=== PATIENT | male | born 1965 | race Caucasian/White ===

== ENCOUNTER 2016-10-27 13:16 | Inpatient (IN) ==
[2016-10-27 14:40] LABS: BASO% 0.4 % (0.0-0.8); EOS# 0.52 X1000 (0.0-0.7); EOS% 6.4 % (0.0-10.0); HEMATOCRIT 36.3 % (42.0-52.0); HEMOGLOBIN 12.4 g/dL (14.0-18.0); LYMPH# 2.33 X1000 (1.2-3.4); LYMPH% 28.9 % (20.5-51.1); MANUAL DIFF NEEDED? YES; MCH 39.5 PG (27-31); MCHC 34.2 g/dL (33-37); MCV 115.6 FL (81-99); MONO# 0.93 X1000 (0.11-0.59); MONO% 11.5 % (1.7-9.3); MPV 9.7 FL (7.4-10.4); NEUT% 52.8 % (42.2-75.2); PLT 256 X1000 (130-400); RBC 3.14 XMIL (4.7-6.1)
[2016-10-27 14:41] LABS: AGAP 12; ALBUMIN 4.1 g/dL (3.5-5.0); ALKALINE PHOSPHATASE 78 U/L (32-122); BUN 8 mg/dL (8-22); CALCIUM 8.9 mg/dL (8.8-10.2); CHLORIDE 100 mmol/L (98-107); COSMO 273; GOT 30 U/L (10-34); GPT 19 U/L (10-44); POTASSIUM 3.7 mmol/L (3.5-5.1); SODIUM 137 mmol/L (136-145); TCO2 25 mmol/L (25-35); TOTAL BILIRUBIN 0.69 mg/dL (0.20-1.00); TOTAL PROTEIN 7.1 g/dL (6.3-8.3)
[2016-10-27 15:04] LABS: BANDS 6 % (0-1); EOS 8 % (1-10); LYMPHS 30 % (21-51); MONO 2 % (1-9)
[2016-10-27 15:05] LABS: POLYCHROM OCCASIONAL
[2016-10-27 15:08] LABS: PROTIME 9.5 Seconds (9.2-11.7)
[2016-10-27 15:09] LABS: INR 0.93
[2016-10-27] MEDS ORDERED: PREPARATION H SUPPOSITORY PR ONE (17:00)
--- NOTE | 2016-10-27 17:16 | PROVIDER DOCUMENTATION ---
HPI-Abdominal Pain/GI Problem - General Chief Complaint: Rectal Bleeding Stated Complaint: GENERAL Time Seen by Provider: 10/27/16 16:26 Allergies/Adverse Reactions: Patient Allergies Allergy/AdvReac Type Severity Reaction Status Date / Time No Known Allergies Allergy Verified 10/27/16 17:09 Home Medications: Home Medication List Medication Instructions Recorded Confirmed Last Taken Type No Home Medications 10/27/16 10/27/16 Unknown History - History of Present Illness-ABD Nature of Presenting Problems: Pt comes in with complaint of blood in his stool since sunday that has gotten worse and is now leaking out and getting on his boxers. He denies any PMH other than having a polyp removed. He states he feels like he has hemorrhoids and they could be the source of his bleeding Review of Systems - Adult - REVIEW OF SYSTEMS - ADULT Constitutional: reports: no symptoms reported. denies: chills, fever, fatique, night sweats, weight gain, weight loss Eyes: reports: no symptoms reported. denies: discharge, decreased vision, blurred vision, eye pain, redness Ears, Nose, Mouth & Throat: reports: no symptoms reported. denies: ear pain, hearing loss, sinus problem, loose teeth, mouth swelling, hoarseness, throat pain, throat swelling Cardiovascular: reports: no symptoms reported. denies: chest pain, edema, heart murmur, orthopnea, palpitations, poor circulation Respiratory: reports: no symptoms reported. denies: see HPI, chronic cough, dyspnea on exertion, excessive sputum production, hemoptysis, pleurisy, wheezing Gastrointestinal: reports: see HPI, rectal bleeding. denies: abdominal pain, hematemesis, constipation, diarrhea, difficulty swallowing, nausea, poor appetite, vomiting Genitourinary: reports: no symptoms reported. denies: dysuria, discharge, frequency, flank pain, hematuria, hesitency, incontinence, urinary retention, urgency Musculoskeletal: reports: no symptoms reported. denies: frequent leg cramps, joint pain, joint swelling, muscle aches, muscle weakness, neck pain Integumentary: reports: no symptoms reported. denies: hives, hair loss, mole changes, nail changes, rash, skin thickening Neurological: reports: no symptoms reported. denies: ataxia, dizziness/vertigo , headache/migraines, loss of balance, paresthesia, seizure, slurred speech, syncope, tremors Psychiatric: reports: no symptoms reported. denies: anxiety, emotional problems , panic attacks Endocrine: reports: no symptoms reported. denies: see HPI, change in skin pigment, excessive sweating, goiter, cold intolerance, heat intolerance, increased hunger, increased thirst, polyuria Hematologic/Lymphatic: reports: no symptoms reported. denies: blood clots, easy bruising, low blood count, lymphedema, prolonged bleeding, swollen lymph nodes, transfusions Allergic/Immunologic: reports: no symptoms reported. denies: allergic reactions , eczema, frequent infections, hay fever, positive PPD, urticaria All Other Systems: Reviewed and Negative Past History - Adult - PAST MEDICAL HISTORY-ADULT Review of Records: reports: Old Records Reviewed, Nursing Assessment Review, Medications Reviewed, Social history reviewed & non-contributory. Major Childhood Illnesses: reports: denies history Cardiovascular: reports: denies history Respiratory: reports: denies history Gastrointestinal: reports: polyps Obstetrical/Gynecological: reports: denies history Genitourinary: reports: denies history Musculoskeletal: reports: denies history Neurological: reports: denies history Endocrine/Immune: reports: denies history Other Conditions: reports: denies history - PRIOR SURGERIES/PROCEDURES Surgical/Procedure History: reports: colonoscopy - PRIOR HOSPITALIZATIONS Prior Hospitalizations: reports: none - IMMUNIZATION STATUS Childhood Immunizations: See Nurse Assessment Flu Vaccine: See Nurse Assessment - FAMILY HISTORY Family History: reviewed, not pertinent - SOCIAL HISTORY Smoking: cigarettes Provider spent 3-5 mins advising pt. on dangers of tobacco.: Discussed manners to quit use, and f/u contacts for add'l counseling. Substance Use: none/never Alcohol Use Frequency: never Living Situation: family Physical Exam-General - PHYSICAL EXAM-ADULT Initial Vital Signs Reviewed: Yes - CONSTITUTIONAL General Appearance: appears well, alert, no apparent distress, thin - EYES Eyes: PERRL/EOMI, pink conjunctivae - HEAD, EARS, NOSE, MOUTH & THROAT HENMT: normocephalic/atraumatic, moist mucous membranes, normal ENT inspection - NECK Neck: non-tender, full range of motion - RESPIRATORY Respiratory: chest non-tender, lungs clear, normal breath sounds, no pleuratic chest pain, no respiratory distress - CARDIOVASCULAR Cardiovascular: normal peripheral pulses, regular rate, rhythm, no edema - GASTROINTESTINAL (ABDOMEN) Abdominal Exam: normal bowel sounds, non tender, soft, no organomegaly, no pulsatile mass - GENITOURINARY Male Genitalia: deferred Rectal Exam: hemorrhoids (internal) Hemoccult Exam: heme positive stool - MUSCULOSKELETAL Back Exam: normal inspection, no CVA tenderness, no vertebral tenderness Extremity: normal range of motion, non-tender, normal gait, normal inspection - SKIN Integumentary: normal color, normal turgor - NEUROLOGIC 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, grossly normal, no motor/sensory deficits - PSYCHIATRIC Psych/Mental Status: normal mood/affect, normal thought content, normal thought process, oriented x 3 Progress - PLAN OF CARE/RESULTS Progress/Plan/Lab Results: Laboratory Tests 10/27/16 10/27/16 10/27/16 14:12 14:12 14:12 WBC 8.07 RBC 3.14 L Hgb 12.4 L Hct 36.3 L MCV 115.6 H MCH 39.5 H MCHC 34.2 RDW Std Deviation 13.3 Plt Count 256 MPV 9.7 Neut % (Auto) 52.8 Lymph % (Auto) 28.9 [place] % (Auto) 11.5 H Eos % (Auto) 6.4 Baso % (Auto) 0.4 Neut # (Auto) 4.26 Lymph # (Auto) 2.33 [place] # (Auto) 0.93 H Eos # (Auto) 0.52 Baso # (Auto) 0.03 Segmented Neutrophils 48 Band Neutrophils 6 H Lymphocytes 30 Monocytes 2 Eosinophils 8 Atypical Lymphocytes 6.0 Polychromasia OCCASIONAL Basophilic Stippling OCCASIONAL Anisocytosis 2+ Macrocytosis 2+ PT 9.5 INR 0.93 PTT (Actin FS) 29.0 Sodium 137 Potassium 3.7 Chloride 100 Carbon Dioxide 25 Anion Gap 12 BUN 8 Creatinine 0.8 Estimated GFR/1.73 m2 > 60 BUN/Creatinine Ratio 10 Glucose 111 H Calculated Osmolality 273 Calcium 8.9 Total Bilirubin 0.69 AST 30 ALT 19 Alkaline Phosphatase 78 Total Protein 7.1 Albumin 4.1 Globulin 3.0 Albumin/Globulin Ratio 1.4 Orders Category Date Time Status CBC WITH ELECTRONIC DIFF [HEME] Stat Lab 10/27/16 14:12 Completed COMPREHENSIVE METABOLIC PANEL [CHEM] Stat Lab 10/27/16 14:12 Completed OCCULT BLOOD DIAGNOSTIC [STOOL] Stat Lab 10/27/16 17:03 Ordered PROTIME WITH INR [COAG] Stat Lab 10/27/16 14:12 Completed PTT [COAG] Stat Lab 10/27/16 14:12 Completed Phenyleph/Shark Liver/Ccb Supp [Preparation H Med 10/27/16 17:00 Once Suppository] 1 each WA NOW ONE Vital Signs - 24 hr 10/27/16 14:02 Temperature 98.0 F Pulse Rate 82 Respiratory 18 Rate Blood Pressure 121/85 O2 Sat by Pulse 100 Oximetry - CONSULTS/PCP/HOSPITALIST Notification #1 *Consult/PCP/Hospitalist*: rossana Time Discussed: 17:49 (pt has not seen dr mcneil in over a year not an active patient admit to hospitalist ) Consult Disposition: other #2 Consult: maxwell tucker hospitalist Time Discussed: 17:49 Consult Disposition: Will see in ED, Admit Departure - Departure Time of Disposition Order: 17:31 DIAGNOSIS: Lower GI bleed Disposition: ADMITTED INPATIENT 09 Certified Medical Emergency: Emergent Condition: Good Additional Instructions: ED Follow Up Instructions: You have been treated by a care provider in the Emergency Department. These instructions are being provided to you so you can have an understanding of how to care for yourself upon discharge. Upon discharge from the Emergency Department, you are responsible for making arrangements for follow-up care by a physician of your choice. Take all prescribed medications as directed. Return to the Emergency Department immediately for any new or worsening symptoms. You may call the Physician Referral phone number at [phone] to obtain a list of Physicians who are taking new patients. Attestation - Physician/ CADE Attestation Patient care was provided by Advanced Practice Provider:: Yes Advanced Practice Provider:: Arnulfo Michaels Advanced Practice Provider documentation review:: The Mid-level provider documentation, treatment plan and medical decision making was reviewed by the physician who agrees with all treatment and medical decision making by the P.
[2016-10-27] MEDS ORDERED: NS 1,000 ML IV ONE (17:37)
[2016-10-27] MEDS ORDERED: NICODERM PATCH ONE (18:10)
[2016-10-27] MEDS ORDERED: NICODERM PATCH TD ONE (18:20)
[2016-10-27] MEDS ORDERED: PROTONIX IV SCH (21:29)
[2016-10-27] MEDS ORDERED: TYLENOL PO PRN (21:29)
[2016-10-27] MEDS ORDERED: ZOFRAN IV PRN (21:29)
[2016-10-27] MEDS ORDERED: SODIUM CHLORIDE 0.9% INJ SCH (21:29)
[2016-10-27] MEDS: NS 1,000 ML IV SCH (22:31)
[2016-10-27] MEDS: NICODERM PATCH TD SCH (22:31)
[2016-10-28 07:37] LABS: BASO% 0.3 % (0.0-0.8); EOS# 0.66 X1000 (0.0-0.7); EOS% 8.5 % (0.0-10.0); HEMATOCRIT 32.7 % (42.0-52.0); IMM GRAN# 0.07 X1000 (0.0-0.04); IMM GRAN% 0.9 % (0.0-0.5); LYMPH# 2.42 X1000 (1.2-3.4); LYMPH% 31.2 % (20.5-51.1); MANUAL DIFF NEEDED? YES; MCH 38.6 PG (27-31); MCHC 33.6 g/dL (33-37); MCV 114.7 FL (81-99); MONO# 0.92 X1000 (0.11-0.59); MONO% 11.9 % (1.7-9.3); MPV 9.9 FL (7.4-10.4); NEUT% 47.2 % (42.2-75.2); PLT 236 X1000 (130-400); RBC 2.85 XMIL (4.7-6.1)
[2016-10-28 07:38] LABS: AGAP 11; BUN 6 mg/dL (8-22); CALCIUM 8.7 mg/dL (8.8-10.2); CHLORIDE 105 mmol/L (98-107); COSMO 273; POTASSIUM 3.7 mmol/L (3.5-5.1); SODIUM 138 mmol/L (136-145); TCO2 22 mmol/L (25-35)
[2016-10-28 07:55] LABS: BANDS 4 % (0-1); EOS 6 % (1-10); LYMPHS 28 % (21-51); MONO 8 % (1-9)
--- NOTE | 2016-10-28 08:08 | HISTORY AND PHYSICAL ---
PRIMARY CARE PROVIDER: The patient's previous primary care provider was Dr. Mir Dial, though the patient has not seen him in, from what I understand, in several years. Thus at this time he will be admitted to the hospitalist service for admission and continued care. CHIEF COMPLAINT: Rectal bleeding. HISTORY OF PRESENT ILLNESS: The patient is a 51-year-old male who presented to the emergency room [facility] with the complaints of rectal bleeding that started on Sunday, approximately six days ago. The patient stated that previously he was just noticing blood when he would wipe after having a bowel movement, though now he states that this has gotten worse and he is continually having dripping-type rectal bleeding that is getting on his boxers, as well as his clothes. The patient denies any loose stools. He reports having formed regular stools and normally has two bowel movements a day. The patient states that he has had previous problems with hemorrhoids in the past. He denies any abdominal pain. He denies any nausea or vomiting. The patient does have a previous history of having a polyp removed though no other known past medical history except for this. The patient also reports that he does use approximately 4 BC Powders a day and drinks anywhere from 30 to 60 beers a week. The patient reports the rectal bleeding he is having is bright red in color. Upon evaluation in the emergency room the patient was noted to have a Hemoccult-positive stool that NARGIS Ayala in the ER did from a rectal exam on the patient, for which he did note internal hemorrhoids. The patient is denying any headache, dizziness, chest pain, shortness of breath, dysuria, urinary frequency, pain, numbness or tingling in the extremities. He also denies any fevers, body aches or chills, or any fatigue or malaise. His hemoglobin and hematocrit were 12.4 and 36.3. At this time we will admit the patient for further treatment and evaluation of a lower GI bleed. REVIEW OF SYSTEMS: A 14-point review of systems was conducted with the patient and all were negative except for pertinent positives mentioned in the above HPI. PAST MEDICAL HISTORY: 1. Removal of polyp. 2. Hemorrhoids. PAST SURGICAL HISTORY: 1. Back surgery in 1993. 2. Polyp removed. SOCIAL HISTORY: The patient reports that he is a current every-day smoker and has smoked one-pack- per-day for approximately 30 years. He also reports that he drinks approximately 30 to 60 beers a week. He denies any illicit drug use. 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 FAMILY HISTORY: The patient reports that his mother has a history of diabetes, though no other known medical problems in his family. ALLERGIES: The patient reports no known allergies. HOME MEDICATIONS: The patient denies any prescription medication use. DIAGNOSTIC DATA/ LABORATORY RESULTS: White blood cell count 8.07. Hemoglobin 12.4. Hematocrit 36.3. Platelet count is 256,000. PT 9.5. INR is 0.93. PTT is 29. Sodium 137. Potassium 3.7. Chloride 100. Bicarb 25. BUN 8. Creatinine 0.8. Glucose 111. Calcium 8.9. Liver function tests within normal limits. PHYSICAL EXAMINATION: VITAL SIGNS: Temperature is 98, heart rate 77, respirations 18, and blood pressure is 121/73. The oxygen saturation is 100% on room air. GENERAL: Mr. Pak is a well-developed and well-nourished, pleasant 51-year-old male who is resting on the ER stretcher in no acute distress. He is awake, alert, and able to answer all questions appropriately. HEENT: The head is atraumatic and normocephalic. The pupils are equal, round, and reactive to light, 3 mm bilaterally and brisk. The subconjunctivae are pink. The oral mucosa is moist. The oropharynx is clear. NECK: Supple. The trachea is midline. CARDIOVASCULAR: The patient has a normal S1 and S2. No murmurs, gallops or rubs are appreciated, with a regular rate and rhythm. PULMONARY: The patient has symmetrical chest expansion bilaterally. The lung sounds are clear to auscultation in bilateral full fernández. ABDOMEN: The abdomen is soft, nontender, and nondistended. Bowel sounds are present in all four quadrants and normoactive. EXTREMITIES: No clubbing, cyanosis, or edema is noted. Pulses, motor, and sensory is intact in all extremities as well. Pedal pulses are 3+ bilaterally. INTEGUMENTARY: The patient's skin color is pink, warm, and dry. No lesions or sores are noted. NEUROLOGICAL: The patient is alert and oriented times four. Cranial nerves II through XII are grossly intact. ASSESSMENT AND PLAN: 1. Lower gastrointestinal bleeding. Given the patient's reported history, his rectal bleeding could likely be related to hemorrhoids, though we will rule out any other etiology. We have placed a consult with Dr. Maddy Rios with Gastroenterology and will await her evaluation and further recommendations. We will repeat a complete blood count in the a.m. We will place him on a clear liquid diet at this time. The patient's vital signs at this time have been stable though we will place him on telemetry and monitor his hemodynamic status closely. We will continue him on his normal saline at 75 mL per hour. We will continue to follow. 2. Tobacco abuse and dependency. We did discuss with the patient his need to quit smoking. He did express interest in wanting to quit so we will continue to bereavement counselor him on smoking cessation throughout his admission. At this time we have placed an order for NicoDerm 25 mg transdermal patch daily. 3. Gastrointestinal prophylaxis will be provided with Protonix 40 mg intravenous q.24 h. 4. Deep venous thrombosis prophylaxis will be provided with sequential compression devices. 5. The patient will be placed on the medical floor with telemetry. He will have vital signs q.6 h. and strict intake and output. 6. The patient also did mention that he has had a productive cough for the past two weeks which does have yellow sputum at times. He denied any fevers, body aches or chills, and lung sounds are clear to auscultation. He also reports symptoms associated with this of sinus drainage as well, though his sinuses were nontender upon palpation. 7. Further orders and recommendations pending the hospital course, diagnostic studies and physician evaluation. Dictated by NARGIS Dunbar for John Ayers MD
[2016-10-28] MEDS: PREPARATION H SUPPOSITORY PR SCH ×2 (08:53→20:18)
[2016-10-28] MEDS: NICODERM PATCH TD SCH (08:54)
[2016-10-28] MEDS: NS 1,000 ML IV SCH (11:23)
[2016-10-28] MEDS: SODIUM CHLORIDE 0.9% INJ SCH (11:26)
[2016-10-28] MEDS: PROTONIX IV SCH ×2 (11:26→21:12)
[2016-10-29 07:41] LABS: HEMATOCRIT 34.3 % (42.0-52.0); HEMOGLOBIN 11.5 g/dL (14.0-18.0); MCH 39.4 PG (27-31); MCHC 33.5 g/dL (33-37); MCV 117.5 FL (81-99); MPV 10.1 FL (7.4-10.4); RBC 2.92 XMIL (4.7-6.1)
[2016-10-29 08:27] LABS: AGAP 11; BUN 8 mg/dL (8-22); CALCIUM 8.5 mg/dL (8.8-10.2); CHLORIDE 101 mmol/L (98-107); COSMO 268; POTASSIUM 3.9 mmol/L (3.5-5.1); SODIUM 135 mmol/L (136-145); TCO2 23 mmol/L (25-35)
[2016-10-29] MEDS: NICODERM PATCH TD SCH (09:18)
[2016-10-29] MEDS: PROTONIX IV SCH ×2 (09:18→21:57)
[2016-10-29] MEDS: PREPARATION H SUPPOSITORY PR SCH ×2 (09:18→22:00)
[2016-10-29] MEDS: SODIUM CHLORIDE 0.9% INJ SCH ×2 (09:19→21:57)
--- NOTE | 2016-10-29 13:33 | PROGRESS NOTE ---
DATE: 10/29/2016 SUBJECTIVE: The patient states that he did have some blood during his bowel movement overnight but otherwise has no other complaints. OBJECTIVE: Vital signs: Temperature is 97, blood pressure 109/79, heart rate 67, respirations 18, O2 saturation is 100% on room air. General: This is a middle-aged male lying in bed, in no acute distress. HEENT: Head is normocephalic and atraumatic. Heart: S1, S2, normal. Regular rate and rhythm. Lungs: Clear to auscultation bilaterally. No wheezing, no rales, no rhonchi. Abdomen: Positive bowel sounds. Soft, nontender and nondistended. Extremities : No edema, no cyanosis, no calf tenderness. Neurologic: The patient is alert and oriented x3. DIAGNOSTIC DATA: Hemoglobin is 11, hematocrit 34, platelets 228. BUN is 8, creatinine 0.8, sodium is 135, potassium 3.9, glucose 98. ASSESSMENT AND PLAN: 1. Lower gastrointestinal bleed. Colonoscopy planned for tomorrow. 2. Anemia. H/H is stable. [facility]
--- NOTE | 2016-10-29 14:01 | PROGRESS NOTE ---
DATE: 10/29/2016 SUBJECTIVE: He had very little blood when he wiped. No hemorrhoids coming out. Tolerating diet. OBJECTIVE: Vital signs: Temp 98 degrees, heart rate 70, respirations 18, blood pressure 120/70, O2 saturation 100% on room air. HEENT: Mild conjunctival pallor present. Neck: Supple. Trachea in the midline. Heart: Normal. Lungs: Normal. Abdomen: Benign. No organomegaly. No ascites. Extremities: Unremarkable. Neurologic: No neurological deficit. IMPRESSION: 1. Lower gastrointestinal bleeding. Stable. Hematocrit is 34.7 which is slightly lower than admission. 2. Nicotine dependency. 3. Alcohol dependency. 4. Gastrointestinal prophylaxis. 5. Deep vein thrombosis prophylaxis. 6. Will prep him for colonoscopy in the morning by Dr. Rios.
[2016-10-29] MEDS ORDERED: GOLYTELY PO ONE (16:00)
--- NOTE | 2016-10-29 17:26 | CONSULTATION ---
DATE OF CONSULTATION: 10/28/2016 CHIEF COMPLAINT: Rectal bleeding. HISTORY OF PRESENT ILLNESS: This 51-year-old gentleman presents with painless rectal bleeding. He does think he had some swelling like hemorrhoids. He does have some dripping. So he was admitted for further evaluation. He drinks about 60 beers a week and takes Goody powders regularly. He has a history of having had a colonoscopy years ago and had a polyp removed. REVIEW OF SYSTEMS: Fourteen point review is negative other than HPI. PAST SURGERY HISTORY: Colonoscopy with polypectomy, hemorrhoids, back surgery 1993. SOCIAL HISTORY: He is an every day smoker and also drinks every day. Denies using any drugs. . Employed. FAMILY HISTORY: History of diabetes but no history of colon cancer or ulcerative colitis. ALLERGIES: None. HOME MEDICATIONS: None. LABORATORY DATA: White count 8.07, hemoglobin 12, hematocrit 36.3, platelet count is normal. PT and INR normal. Electrolytes are normal. Creatinine 0.8. LFTs are normal. PHYSICAL EXAMINATION: General: Reveals this is a pleasant, thin gentleman in no acute distress. Vital Signs: Temp 98 degrees, heart rate 77, respirations 18, blood pressure 120/73. HEENT: No scleral icterus. Mild conjunctival pallor present. Neck: Supple. Trachea in the midline. Heart: Normal first and second heart sounds. Lungs: Clear. Abdomen: No organomegaly. No ascites. Bowel sounds present. Normal. Extremities: Unremarkable. Neurological: Intact. IMPRESSIONS: 1. Rectal bleeding. It appears to be related to hemorrhoids and he has a history of colon polyps. Will prep him for colonoscopy tomorrow. Dr. Rios was consulted so we will have her do the colonoscopy. 2. Nicotine dependency. 3. Alcoholism. 4. Gastrointestinal prophylaxis. 5. Deep vein thrombosis prophylaxis. We will follow.
[2016-10-30 04:42] VITALS: BP 114/69
[2016-10-30 08:07] LABS: HEMATOCRIT 35.5 % (42.0-52.0); MCH 39.3 PG (27-31); MCHC 33.8 g/dL (33-37); MCV 116.4 FL (81-99); MPV 10.1 FL (7.4-10.4); RBC 3.05 XMIL (4.7-6.1)
[2016-10-30 08:19] LABS: AGAP 10; BUN 9 mg/dL (8-22); CALCIUM 8.7 mg/dL (8.8-10.2); CHLORIDE 101 mmol/L (98-107); COSMO 271; POTASSIUM 4.3 mmol/L (3.5-5.1); SODIUM 136 mmol/L (136-145); TCO2 25 mmol/L (25-35)
[2016-10-30] MEDS ORDERED: MYLICON DROPS (DOSE) MISC ONE (08:46)
[2016-10-30] MEDS ORDERED: LR 1,000 ML ONE (09:43)
[2016-10-30] MEDS ORDERED: ANESTHESIA PB SET 88 IN 5742 ONE (09:43)
[2016-10-30] MEDS ORDERED: XYLOCAINE-MPF 2% ONE (09:43)
[2016-10-30] MEDS ORDERED: ROBINUL ONE (09:43)
[2016-10-30] MEDS ORDERED: ANUSOL-HC SUPP PR SCH (09:51)
[2016-10-30] MEDS: PREPARATION H SUPPOSITORY PR SCH (11:42)
[2016-10-30] MEDS: NICODERM PATCH TD SCH (11:42)
[2016-10-30] MEDS: SODIUM CHLORIDE 0.9% INJ SCH (11:43)
[2016-10-30] MEDS: PROTONIX IV SCH (11:43)
[2016-10-30] MEDS ORDERED: DIPRIVAN 1% ONE (12:13)
--- NOTE | 2016-10-30 14:53 | EKG Report ---
Test Performed on : 10/28/2016 09:00:12 AM Test Reason : Lower GI Bleed, Poss. Surgical Patient Blood Pressure : / mmHG Vent. Rate : 060 BPM Atrial Rate : 060 BPM P-R Int : 120 ms QRS Dur : 096 ms QT Int : 410 ms P-R-T Axes : 050 075 081 degrees QTc Int : 410 ms Normal sinus rhythm. Normal ECG No previous ECGs available Confirmed by Milan RUSSELL, Hugo Hull ([id number]) on 11/01/2016 3:21:08 PM
--- NOTE | 2016-10-31 10:03 | DISCHARGE SUMMARY ---
ADMISSION DATE: 10/27/2016 DISCHARGE DATE: 10/30/2016 DISCHARGE DIAGNOSES: 1. Hemorrhoids. Lower gastrointestinal bleed. 2. Anemia. HOSPITAL COURSE: Briefly, this is a 51-year-old male who had acute episode of hematochezia, for which he was admitted on the . He has seen Dr. Dial in the past. He has had a history of polyps and hemorrhoids. He takes several BC powders daily; he says he only takes them intermittently, but on admission admitted to daily use, and 30-60 beers a day. He had heme- positive stool and he was admitted for treatment, although his hemoglobin and hematocrit were fairly stable. Dr. Rios was consulted and he underwent colonoscopy on the which reportedly showed no gross bleeding and evidence of polyps. He did get placed on hydrocortisone PA; I am not quite sure what happened from there. Report recommended omeprazole and Anusol suppositories b.i.d., and follow up with her in 4 weeks. He will follow up with Dr. Dial I guess this week or within a week, and repeat a CBC at that time. He was told to return for any worsening bleeding. DISCHARGE CONDITION: Stable. Again, felt to be external hemorrhoids with bleeding. He had no bleeding the day of discharge. TIME SPENT: 32 minute discharge.
--- NOTE | 2016-11-01 04:12 | OPERATIVE NOTE ---
PROCEDURE DATE: 10/30/2016 REFERRING PHYSICIAN: Emiliano Locke MD. PRIMARY CARE PHYSICIAN: Mir Dial MD. INDICATION FOR PROCEDURE: 1. Rectal bleeding. 2. NSAID use. 3. Iron-deficiency anemia. 4. History of colon polyps. 5. Long-standing ETOH abuse. PROCEDURE PERFORMED: Colonoscopy. CONSENT: Informed consent was obtained from the patient prior to the procedure. The risks, benefits, and alternatives were discussed with the patient and his . MEDICATIONS: The patient received monitored anesthesia care. PERFORMING PHYSICIAN: Maddy Rios MD. ASSISTANTS: 1. Jo Borrego RN. 2. Cody Fulton RN. 3. Ena Alexander CRNA. 4. Aneesh Pickett MD (anesthesia). COMPLICATIONS: There were no complications. ESTIMATED BLOOD LOSS: None. SPECIMENS REMOVED: None. FINDINGS: After sedation was achieved, the pediatric colonoscope was inserted to the cecum. Although the exam was limited by the presence of copious amounts of stool, the terminal ileum, ileocecal valve, and appendiceal orifice appeared grossly normal. Upon withdrawal, there was stool that obscured more than 40% of the luminal circumference, making the exam inadequate for screening. Upon withdrawal of the scope, the colonic mucosa appeared grossly normal. In the upper rectum, there were internal hemorrhoids. On retroflexed view, there were large external hemorrhoids that were actually bleeding. After the exam was complete, the lumen was decompressed and the scope was removed without incident. CECAL INTUBATION TIME: 5 minutes. WITHDRAWAL TIME: 11 minutes. PREP QUALITY: Poor (inadequate for screening colonoscopy). IMPRESSION: 1. Poor bowel prep. 2. Internal hemorrhoids, grade 2. 3. External hemorrhoids with active bleeding. RECOMMENDATION: 1. Begin Anusol HC suppositories 1 per rectum twice a day. 2. Begin omeprazole 40 mg 1 p.o. daily. 3. Discontinue Goody Powder. 4. We will schedule an outpatient EGD to identify the cause of his dropping hemoglobin. 5. He will need both an EGD and colonoscopy in the next 1-3 months. 6. We will have the patient return to clinic in 4-6 weeks to assess interval progress.
== END 2016-10-30 15:28 | disposition home or self-care (01) | DRG 395 ==
LOC: ED 13:16 → 3N 20:46
PROVIDERS: ATTEND Internal Medicine
PROC: 0DJD8ZZ Inspection of Lower Intestinal Tract, Via Natural or Artificial Opening Endoscopic (ICD-10-PCS; principal; 2016-10-30 08:35)
DX: K64.4 Residual hemorrhoidal skin tags (principal); J44.9 Chronic obstructive pulmonary disease, unspecified; F17.210 Nicotine dependence, cigarettes, uncomplicated; F10.20 Alcohol dependence, uncomplicated; D50.9 Iron deficiency anemia, unspecified; M19.90 Unspecified osteoarthritis, unspecified site; K64.1 Second degree hemorrhoids; Z79.1 Long term (current) use of non-steroidal anti-inflammatories (NSAID); Z83.3 Family history of diabetes mellitus; Z86.010 Personal history of colon polyps
CPT/HCPCS: 80048; 80053; 82272; 85025; 85027; 85610; 85730; 93005; 93010; 94761; 94799; 99284; C9113; J7030; J7120; S0164